=== PATIENT | male | born 1975 | race Caucasian/White ===

== ENCOUNTER 2023-03-19 02:38 | Emergency (ER) | payer OTHER, BC ==
[2023-03-19] MEDS ORDERED: Ketorolac Tromethamine 30 MG/ML VIAL ONE (03:28)
[2023-03-19] MEDS ORDERED: HYDROcodone/Acetaminophen 5/325 mg Tablet ONE (03:28)
[2023-03-19] MEDS ORDERED: Lidocaine 4% Patch TD SCH (03:30)
== END 2023-03-19 06:01 | disposition home or self-care (01) ==
LOC: CSHERS 02:38
DX: S43.421A Sprain of right rotator cuff capsule, initial encounter (principal); S46.911A Strain of unspecified muscle, fascia and tendon at shoulder and upper arm level, right arm, initial encounter; S00.31XA Abrasion of nose, initial encounter; S50.312A Abrasion of left elbow, initial encounter; T14.8XXA Other injury of unspecified body region, initial encounter; I10 Essential (primary) hypertension; Z79.899 Other long term (current) drug therapy; V68.5XXA Driver of heavy transport vehicle injured in noncollision transport accident in traffic accident, initial encounter
CPT/HCPCS: 71045; 96372; J1885